=== PATIENT | female | born 1985 | race Caucasian/White ===

== ENCOUNTER → 2019-03-16 16:27 | Outpatient (CLI) | payer OTHER, SELFPAY ==
[2019-03-10 15:19] VITALS: BMI 23.2
--- NOTE | 2019-03-16 16:30 | US_ITS ---
STUDY: SECOND AND THIRD TRIMESTER OBSTETRICAL ULTRASOUND REASON FOR EXAM: Female, 33 years old anatomy LMP: TECHNIQUE: Transabdominal TECHNICAL QUALITY: Adequate. PRIOR ULTRASOUND: None. FINDINGS: There is a single intrauterine fetus. The fetus is in a variable presentation. There is demonstrated cardiac activity with a heart rate of 149 bpm. There is a normal amniotic fluid volume. The largest amniotic fluid pocket measures 8.1 cm. The amniotic fluid index (DEJAN) is 17.7 cm. The placenta is fundal There are Grade 1 placental changes. The cervix measures 3.9 in length. The bilateral adnexal regions are normal. BIOMETRY: BPD: 7 cm: 29 weeks, 0 days HC: 27 cm: 29 weeks, 3 days AC: 23.5 cm: 27 weeks, 6 days FL: 5.19 cm: 27 weeks, 5 days CI: 0.77 FL/BPD: 0.72 FL/HC: FL/AC: 0.22 HC/AC: 1.15 age by current US: 28 weeks, 4 days. RENE by current US: June 04, 2019. Estimated weight: 1150 grams, +/- 168 grams, 52 %. age by prior US: weeks, days. RENE by prior US: . Age by LMP: 27 weeks, 4 days. RENE by LMP: June 20, 2019. ANATOMY: Cranium: Normal lateral ventricles. Normal choroid plexus. Normal cerebellum. Normal cisterna magna. Normal face, nose and lips. Chest: Normal 4-chamber heart. Abdomen/Pelvis: Normal diaphragm. Normal stomach. Normal abdominal wall. Normal cord insertion. Normal 3 vessel cord. Kidneys were not adequately visualized due to position and gestational age Normal bladder. Spine: Normal cervical spine. Normal thoracic spine. Normal lumbar spine. Normal sacrum. Extremities: Normal bilateral upper extremities. Normal bilateral lower extremities. US/OB Anatomy Scan IMPRESSION: Viable intrauterine gestation approximately 28-29 weeks gestational age No gross anomalies given limited view of the kidneys due to position and gestational age. Electronically Signed: Guanakito Garza MD at 18:17 EDT , Service support ,
== END ==
PROVIDERS: Family Provider Family Medicine; PCP Family Medicine; Referring Provider Obstetrics & Gynecology; Visit Provider Obstetrics & Gynecology
DX: Z36.89 Encounter for other specified antenatal screening (principal)
CPT/HCPCS: 76805

== ENCOUNTER → 2019-06-04 08:32 | Outpatient (CLI) | payer OTHER, SELFPAY ==
[2019-03-10 16:12] VITALS: BMI 21.2
[2019-04-27 13:31] VITALS: BMI 21.2
--- NOTE | 2019-06-04 08:35 | US_ITS ---
STUDY: SECOND AND THIRD TRIMESTER OBSTETRICAL ULTRASOUND REASON FOR EXAM: Female, 34 years old . well-being. LMP: September 04, 2018. TECHNIQUE: Transabdominal TECHNICAL QUALITY: Adequate. PRIOR ULTRASOUND: Comparison is made with prior study dated March 16, 2019. FINDINGS: There is a single intrauterine fetus. The fetus is in a cephalic presentation. There is demonstrated cardiac activity with a heart rate of 129 bpm. There is a normal amniotic fluid volume. The largest amniotic fluid pocket measures 3.3 cm. The amniotic fluid index (DEJAN) is 9.4 cm. The placenta is fundal in location. There are Grade 2 placental changes. The cervix unable to be measured due to the head position. The adnexal regions are not visualized. BIOMETRY: BPD: 9.6 cm: 39 weeks, 1 days HC: 33.9 cm: 39 weeks, 0 days AC: 33.5 cm: 37 weeks, 2 days FL: 7.3 cm: 37 weeks, 2 days CI: 84% FL/BPD: 76% FL/HC: FL/AC: 22% HC/AC: 1.01 age by current US: 38 weeks, 2 days. RENE by current US: June 16, 2019. Estimated weight: 3310 grams, +/- 490 grams, 37 %. age by prior US: 40 weeks, 0 days. RENE by prior US: June 04, 2019. Age by LMP: 39 weeks, 0 days. RENE by LMP: June 11, 2019. US/OB Limited With Biometrics IMPRESSION: Single live intrauterine gestation with a mean gestational age of 40 weeks. The measurements obtained today fall within normal expected range. Electronically Signed: Anton James, at 11:37 EST , Service support ,
== END ==
PROVIDERS: Family Provider Family Medicine; PCP Family Medicine; Referring Provider Obstetrics & Gynecology; Visit Provider Obstetrics & Gynecology
DX: Z34.90 Encounter for supervision of normal pregnancy, unspecified, unspecified trimester (principal)
CPT/HCPCS: 76816

== ENCOUNTER → 2020-06-07 18:21 | Outpatient (CLI) | payer MEDICAID, SELFPAY ==
[2020-06-07 13:30] VITALS: BMI 20.5
[2020-06-11 13:13] LABS: HPV APTIMA, High Risk Negative (Negative)
== END ==
PROVIDERS: PCP Family Medicine; Referring Provider Obstetrics & Gynecology; Visit Provider Obstetrics & Gynecology
DX: Z12.4 Encounter for screening for malignant neoplasm of cervix (principal)
CPT/HCPCS: 87624; 88175; G0145

== ENCOUNTER → 2024-07-13 | Outpatient (CLI) | payer MEDICAID, SELFPAY ==
[2024-07-17 15:07] LABS: HPV APTIMA, High Risk Negative (Negative)
== END | disposition home or self-care (01) ==
LOC: BWCLAB 15:08
PROVIDERS: PCP Internal Medicine; Referring Provider Obstetrics & Gynecology; Visit Provider Obstetrics & Gynecology
DX: Z12.4 Encounter for screening for malignant neoplasm of cervix (principal)

== ENCOUNTER → 2024-07-13 | Outpatient (CLI) | payer MEDICAID, SELFPAY ==
--- NOTE | 2024-07-13 10:19 | BI_ITS ---
MAMMOGRAPHY - BILATERAL SCREENING REASON FOR EXAM: Female, 39 years old. Routine annual screening examination. PERTINENT HISTORY: Non-contributory. TECHNIQUE: Digital bilateral breast elizabet (3D mammographic acquisition) in the CC and MLO projections. 2-D mediolateral oblique (MLO) and craniocaudad (CC) views of both breasts were obtained. CAD: Full Field Digital Mammography with Computer Added Detection was performed. COMPARISON: None. Baseline examination. FINDINGS: Breast Composition: The breasts are extremely dense, which lowers the sensitivity of mammography. There are no dominant masses or suspicious calcifications. No other significant abnormalities are identified. BI/SCRN MAMM (CAD)W/ELIZABET BILAT IMPRESSION: Negative screening mammogram. Yearly followup mammogram recommended. (A) ASSESSMENT CATEGORY: BIRADS Category 1: Negative. A letter regarding these results will be sent to the patient by the facility within 30 days. Approximately 10% of breast cancers are not detected by mammography. A normal mammogram should not delay biopsy of a clinically suspicious abnormality. [id number] Electronically Signed: Anton James MD at 11:11 EST ,
== END | disposition home or self-care (01) ==
LOC: OPBI 10:18
PROVIDERS: PCP Internal Medicine; Referring Provider Obstetrics & Gynecology; Visit Provider Obstetrics & Gynecology
DX: Z12.31 Encounter for screening mammogram for malignant neoplasm of breast (principal)